=== PATIENT | female | born 1975 | race Caucasian/White ===

== ENCOUNTER 2016-10-15 20:37 | Inpatient (IN) | payer OTHER ==
[~2016-10-15] VITALS: Ht 170.2 cm; Wt 51.7 kg
[~2016-10-15 20:37] MED LIST: BUPRENORPHINE HC2 MG SL; HEPARIN SO5000 UNITS SC; LIBRIUM25 MG PO; LOVENOX40 MG/0.4 SC; MOTRIN800 MG PO; PRENATAL TABLE1 EAC3 PO; THIAMINE HCL100 MG PO
[2016-10-15 21:45] LABS: HEMATOCRIT 42.6 % (36.0-46.0); MCH 31.8 PG (29.0-34.0); MCHC 33.8 G/DL (30.0-36.0); MEAN PLAT.VOLUME 9.1 uM^3 (9.5-12.4); PLATELET COUNT 340 K/uL (156-360); RBC DIS.WIDTH-CV 13.2 % (11.8-14.6); RBC DIS.WIDTH-SD 45.2 % (39-53); RED BLOOD COUNT 4.53 M/uL (3.80-5.20); WHITE BLOOD COUNT 6.8 K/uL (4.1-10.2)
[2016-10-15 21:45] LABS: ADD MEDTOX COMMENT Y; AMPHETAMINE NEGATIVE (500 ng/mL); BARBITURATES NEGATIVE (200 ng/mL); BENZODIAZEPINES NEGATIVE (150 ng/mL); COCAINE NEGATIVE (150 ng/mL); INTERNAL CONTROLS VALID? YES; METHADONE NEGATIVE (200 ng/mL); METHAMPHETAMINE NEGATIVE (500 ng/mL); OPIATES (MORPHINE) NEGATIVE (100 ng/mL); OXYCODONE NEGATIVE (100 ng/mL); PHENCYCLIDINE NEGATIVE (25 ng/mL); PROPOXYPHENE NEGATIVE (300 ng/mL); THC CANNABINOIDS PRESUMPTIVE POSITIVE (50 ng/mL); TRICYCLIC ANTIDEPRESSANTS NEGATIVE (300 ng/mL)
[2016-10-15 22:00] LABS: CHLORIDE 104 mEq/L (99-109); POTASSIUM 4.1 mEq/L (3.7-5.4); SODIUM 140 mEq/L (136-147)
[2016-10-15 22:02] LABS: GLUCOSE 93 mg/dL (70-99)
[2016-10-15 22:03] LABS: ANION GAP 15 MEQ/L (2-14)
[2016-10-15 22:05] LABS: SERUM ETHYL ALCOHOL 281 mg/dL
[2016-10-15 22:06] LABS: GFR ESTIMATE (CALCULATED) > 59 mL/min/
[2016-10-15 22:07] LABS: ADD MIUA? YES; BILIRUBIN NEGATIVE; BLOOD SMALL; COLOR YELLOW ((YELLOW)); GLUCOSE (STRIP) NEGATIVE; KETONES NEGATIVE; LEUKOCYTES NEGATIVE; NITRITE NEGATIVE; PROTEIN (STRIP) 100; SPECIFIC GRAVITY 1.013 (1.000-1.030); UROBILINOGEN 0.2 MG/DL (0.2-1.0)
[2016-10-15 22:08] LABS: UREA NITROGEN (BUN) 9 mg/dL (9-23)
[2016-10-15 22:09] LABS: SALICYLATE < 5.0 MG/DL (15-30)
[2016-10-15 22:11] LABS: BACTERIA NONE SEEN /HPF; EPITHELIAL CELLS 1+ /HPF; HYALINE CASTS 0-5 /LPF; MUCUS TRACE /LPF; RED BLOOD CELLS 0-5 /HPF (0-5); UCUL ADDED? NO; WHITE BLOOD CELLS 0-5 /HPF (0-5)
[2016-10-16] MEDS ORDERED: ZESTRIL2.5 MG PO (08:27)
[2016-10-16] MEDS ORDERED: PRENATAL TABLE1 EAC3 PO (08:28)
[2016-10-16] MEDS ORDERED: COREG3.125 M1 PO (08:28)
[2016-10-16] MEDS ORDERED: TRAZODONE HCL50 MG PO (08:28)
[2016-10-16] MEDS ORDERED: NICODERM CQ1 EAC2 TD (08:29)
[2016-10-16 16:10] VITALS: BP 133/88
[2016-10-17 07:50] VITALS: BP 112/68
[2016-10-17 15:59] VITALS: BP 112/72
[2016-10-18 08:10] VITALS: BP 81/59
[2016-10-18 09:06] VITALS: BP 119/69
[2016-10-18 12:07] VITALS: BP 122/81
[2016-10-18 13:07] VITALS: BP 117/76
[2016-10-18 15:58] VITALS: BP 120/85
[2016-10-19 08:36] VITALS: BP 104/46
[2016-10-19 15:48] VITALS: BP 115/63
[2016-10-19 19:41] VITALS: BP 103/61
[2016-10-20 07:59] VITALS: BP 90/54
[2016-10-20 15:38] VITALS: BP 94/63
[2016-10-20 21:15] VITALS: BP 99/66
[2016-10-21 08:04] VITALS: BP 94/53
[2016-10-21 15:43] VITALS: BP 116/63
[2016-10-22 07:57] VITALS: BP 98/53
[2016-10-22 15:31] VITALS: BP 106/65
[2016-10-23 08:05] VITALS: BP 101/55
[2016-10-23 15:51] VITALS: BP 103/64
[2016-10-24 08:05] VITALS: BP 93/51
[2016-10-24 15:19] VITALS: BP 98/68
[2016-10-25 07:43] VITALS: BP 92/56
[2016-10-25 11:32] VITALS: BP 100/59
[2016-10-25 15:14] VITALS: BP 95/59
[2016-10-25 21:15] VITALS: BP 92/57
[2016-10-26 09:14] VITALS: BP 96/55
[2016-10-26] MEDS ORDERED: BUPROPION XL300 MG PO (09:39)
== END 2016-10-26 11:59 | disposition home or self-care (01) | DRG 885 ==
LOC: EME 20:37 → EDOF 10-16 12:35 → 1WEST 10-16 12:35
PROVIDERS: Emergency Medicine
DX: F33.9 Major depressive disorder, recurrent, unspecified (principal); I42.6 Alcoholic cardiomyopathy; F41.9 Anxiety disorder, unspecified; F10.20 Alcohol dependence, uncomplicated; F11.10 Opioid abuse, uncomplicated; F15.10 Other stimulant abuse, uncomplicated; F12.10 Cannabis abuse, uncomplicated; Z95.810 Presence of automatic (implantable) cardiac defibrillator; F17.210 Nicotine dependence, cigarettes, uncomplicated; Y90.8 Blood alcohol level of 240 mg/100 ml or more; Z63.4 Disappearance and death of family member
CPT/HCPCS: 71020; 80048; 81003; 83735; 84999; 85027; 90839; 93005; 97150 GO; 97166 GO; 99281; 99285; G0480; J2060; J7030

== ENCOUNTER 2017-02-21 05:32 | Day surgery (SDC) | payer OTHER ==
[~2017-02-21] VITALS: Ht 170.2 cm; Wt 50.8 kg
[~2017-02-21 05:32] MED LIST changes: +ANTABUSE250 MG PO; +BUPROPION XL300 MG PO; +COREG3.125 M1 PO; +MOTRIN600 MG PO; +NICODERM CQ1 EAC2 TD; +PREPLUS CA-FE1 EACH PO; +SUBOXONE 4 MG-1 EACH SL; +TRAZODONE HCL50 MG PO; +WELLBUTRIN XL300 MG PO; +ZESTRIL2.5 MG PO
[2017-02-21 06:04] VITALS: BP 109/55
[2017-02-21] MEDS ORDERED: TRAMADOL HCL50 MG PO (08:49)
[2017-02-21 10:28] VITALS: BP 106/83
[2017-02-21 11:30] VITALS: BP 114/66
[2017-02-21 12:45] VITALS: BP 100/60
== END 2017-02-21 12:50 | disposition home or self-care (01) ==
LOC: SDC 05:32
DX: Z30.2 Encounter for sterilization (principal); N80.9 Endometriosis, unspecified; N90.7 Vulvar cyst; I25.2 Old myocardial infarction; F10.21 Alcohol dependence, in remission; I25.10 Atherosclerotic heart disease of native coronary artery without angina pectoris; F41.8 Other specified anxiety disorders
CPT/HCPCS: J0131; J0171; J1100; J1170; J1650; J1885; J2250; J2405; J2710; J3010; S0020